=== PATIENT | female | born 1960 | race Caucasian/White ===

== ENCOUNTER 2019-04-23 06:48 | Day surgery (SDC) | payer OTHER, BC ==
[2019-04-23] MEDS ORDERED: MIDAZOLAM 1 MG/ML 2 ML INJ ×2 (10:14→10:15)
[2019-04-23] MEDS ORDERED: FENTAnyl 50 MCG/ML VIAL (10:15)
== END 2019-04-23 09:59 | disposition home or self-care (01) ==
LOC: GIL 06:48
DX: Z12.11 Encounter for screening for malignant neoplasm of colon (principal); K64.8 Other hemorrhoids; K64.4 Residual hemorrhoidal skin tags
CPT/HCPCS: 45378